=== PATIENT | female | born 1990 | race Caucasian/White ===

== ENCOUNTER 2016-10-23 00:40 | Inpatient (IN) | payer OTHER ==
[~2016-10-23] VITALS: Ht 162.6 cm; Wt 72.0 kg
[2016-10-23] VITALS (24 sets, daily range): BP systolic 84–157; BP diastolic 45–112
[~2016-10-23 00:40] MED LIST: ACET50TA PO; IBUP80TA PO; PREN1TAB11 PO
[2016-10-23] MEDS ORDERED: LR 1,000 ML IV SCH (02:33)
[2016-10-23] MEDS ORDERED: OXYTOCIN 30 UNITS IN 0.9% NaCl 500ML IV BAG (J2590) As Ordered ONE (02:37)
[2016-10-23 02:45] LABS: MEAN CORPUSCULAR HEMOGLOBIN 31.2 pg (27.0-33.0); MEAN CORPUSCULAR HGB CONC 35.2 g/dl (32.0-36.5); MEAN CORPUSCULAR VOLUME 88.6 fl (80.0-96.0); RED CELL DISTRIBUTION WIDTH 12.9 % (11.5-14.5); WHITE BLOOD COUNT 8.5 K/mm3 (4.0-10.0)
[2016-10-23] MEDS ORDERED: OXYTOCIN DRIP 30 UNITS in APPROPRIATE DILUENT 1 EA IV SCH ×2 (02:45→12:09)
[2016-10-23] MEDS ORDERED: FENTANYL 2MCG/ML ROPIVACAINE 0.2% NACL 250 ML CADD As Ordered ONE (04:04)
[2016-10-23] MEDS ORDERED: EPIDURAL COMMENT XX SCH (05:00)
[2016-10-23] MEDS ORDERED: EPIDURAL/PCA KEYS XX PRN (05:00)
[2016-10-23] MEDS ORDERED: ONDANSETRON 4MG/2ML VIAL (J2405) IV PRN ×2 (05:00→12:15)
[2016-10-23] MEDS ORDERED: REFRIGERATOR IV KEYS XX PRN (05:00)
[2016-10-23] MEDS ORDERED: LACTATED RINGER'S 1000 ML IV PRN (05:00)
[2016-10-23] MEDS ORDERED: ePHEDrine SULFATE 25 MG/5 ML(5MG/ML) SYRINGE IV PRN (05:00)
[2016-10-23] MEDS ORDERED: FENTANYL/ROPIVACAINE/NACL CADD 250 ML EPIDURAL SCH (05:00)
[2016-10-23] MEDS ORDERED: diphenhydrAMINE INJ 50MG/ML VIAL (J1200) IV PRN (05:00)
[2016-10-23] MEDS ORDERED: NALOXONE INJ 0.4 MG/1 ML VIAL (J2310) IV PRN (05:00)
[2016-10-23] MEDS: PRENATAL VITAMIN TAB PO SCH (09:00)
[2016-10-23] MEDS: LR 1,000 ML IV SCH ×2 (12:09→20:09)
[2016-10-23] MEDS ORDERED: DOCUSATE SODIUM 100 MG CAP PO PRN (12:15)
[2016-10-23] MEDS ORDERED: MEASLES,MUMPS,RUBELLA VACCINE INJ (MMR-II) (90707) SC SCH (12:15)
[2016-10-23] MEDS ORDERED: RHOGAM 300 MCG (1500 IU) INJ (J2790) IM SCH (12:15)
[2016-10-23] MEDS ORDERED: PROMETHAZINE 25 MG TAB PO PRN (12:15)
[2016-10-23] MEDS ORDERED: DIBUCAINE 1% OINTMENT 30GM TOP PRN (12:15)
[2016-10-23] MEDS: IBUPROFEN 800 MG TAB PO PRN ×2 (15:10→22:28)
[2016-10-23] MEDS: ACETAMINOPHEN 500 MG TAB PO PRN (17:49)
[2016-10-24] MEDS: ACETAMINOPHEN 500 MG TAB PO PRN ×2 (03:37→12:25)
[2016-10-24] MEDS: LR 1,000 ML IV SCH ×2 (04:09→09:54)
[2016-10-24 05:52] VITALS: BP 110/59
[2016-10-24] MEDS: PRENATAL VITAMIN TAB PO SCH (08:06)
[2016-10-24] MEDS: IBUPROFEN 800 MG TAB PO PRN (08:07)
[2016-10-24] MEDS ORDERED: PRENTAB9 PO (10:40)
[2016-10-24] MEDS ORDERED: IBUP-1114 PO (10:41)
[2016-10-24] MEDS ORDERED: COLA100C PO (10:42)
[2016-10-25] MEDS ORDERED: INFLUENZA QUADRIVALENT PF VACCINE 0.5ML SYRINGE/VIAL (90686) IM ONE (09:00)
== END 2016-10-24 14:10 | disposition home or self-care (01) | DRG 775 ==
LOC: M LDI 00:40 → M OBS 13:55
PROVIDERS: ADMIT Obstetrics & Gynecology; ATTEND Obstetrics & Gynecology
PROC: 10E0XZZ Delivery of Products of Conception, External Approach (ICD-10-PCS; principal; 2016-10-23)
DX: O80 Encounter for full-term uncomplicated delivery (principal); Z3A.39 39 weeks gestation of pregnancy; Z37.0 Single live birth

== ENCOUNTER → 2016-10-29 | Outpatient (REF) | payer OTHER ==
[~2016-10-29] MED LIST changes: +COLA100C PO; +IBUP-1114 PO; +PRENTAB9 PO
== END ==
LOC: M LAB REF 13:04
PROVIDERS: ATTEND Advanced Practice Midwife
DX: R30.0 Dysuria (principal)

== ENCOUNTER → 2017-01-18 | Outpatient (REF) | payer OTHER ==
[~2017-01-18] MED LIST changes: -COLA100C PO; +COLA100C3 PO
== END ==
LOC: M SFHCLERA 16:47
PROVIDERS: ATTEND Physician Assistant
DX: R50.9 Fever, unspecified (principal)

== ENCOUNTER → 2017-01-29 | Outpatient (REF) | payer OTHER ==
[2017-01-30 10:30] LABS: MEAN CORPUSCULAR HEMOGLOBIN 31.3 pg (27.0-33.0); MEAN CORPUSCULAR HGB CONC 34.5 g/dl (32.0-36.5); MEAN CORPUSCULAR VOLUME 90.6 fl (80.0-96.0); RED CELL DISTRIBUTION WIDTH 12.6 % (11.5-14.5); WHITE BLOOD COUNT 8.5 K/mm3 (4.0-10.0)
[2017-01-30 10:40] LABS: FREE T4 0.84 NG/DL (0.76-1.46)
[2017-01-30 10:49] LABS: EOSINOPHILS 1 % (0-5)
[2017-01-30 10:50] LABS: ERYTHROCYTE SEDIMENTATION RATE 8 mm/hr (0-20)
== END ==
LOC: M SFHCLERA 17:24
PROVIDERS: ATTEND Family Medicine
DX: R53.83 Other fatigue (principal)

== ENCOUNTER → 2018-01-13 | Outpatient (CLI) | payer OTHER | LOC: M RAD 12:19 | DX: N63.10 Unspecified lump in the right breast, unspecified quadrant (principal) | CPT/HCPCS: 76642 ==